=== PATIENT | female | born 1995 | race Caucasian/White ===

== ENCOUNTER 2024-06-19 14:28 | Emergency (ER) | payer OTHER ==
[~2024-06-19] VITALS: Ht 162.6 cm; Wt 52.2 kg
== END 2024-06-19 16:34 | disposition home or self-care (01) ==
LOC: ER 14:28
DX: S83.92XA Sprain of unspecified site of left knee, initial encounter (principal); W01.0XXA Fall on same level from slipping, tripping and stumbling without subsequent striking against object, initial encounter
CPT/HCPCS: 73562-LT; 99283-25